=== PATIENT | female | born 1990 | race Caucasian/White ===

== ENCOUNTER → 2020-01-24 | Outpatient (CLI) | payer OTHER ==
[~2020-01-24] MED LIST: HYDRPOW28 PO; META800T82 PO; MIREIUD IU; PROAAER INH; PROC5TA PO; TOPA200T PO; TRAM37.5 PO; TRAZ50TA2 PO; TYLENOL PO; VOLT1GEL2 TOP; ZOMI5TAB3 PO
== END ==
LOC: M LABSMTC 12:40
PROVIDERS: ATTEND Family Medicine
DX: Z11.59 Encounter for screening for other viral diseases (principal)
CPT/HCPCS: C9803; U0003